=== PATIENT | male | born 1980 | race Caucasian/White ===

== ENCOUNTER 2023-06-30 05:58 | Emergency (ER) | payer MEDICAID, OTHER ==
[~2023-06-30] VITALS: Ht 175.3 cm; Wt 95.5 kg
[2023-06-30 06:51] VITALS: PULSE 76; RESP 15; O2SAT 99
[2023-06-30] MEDS: HYDROmorphone HCL 2 MG/ML VL/or syr IV ONE ×3 (07:08→12:11)
[2023-06-30] MEDS: ONDANSETRON HCL 4 MG/2 ML VIAL IV ONE ×2 (07:08→12:13)
[2023-06-30] MEDS: IOHEXOL 300 MG/ML 100ML BOTTLE IJ ONE (07:36)
[2023-06-30] MEDS: PROMETHAZINE HCL 25 MG/ML 1ML IV ONE (08:51)
[2023-06-30 09:47] VITALS: PULSE 68; RESP 20; O2SAT 96
[2023-06-30 12:08] VITALS: TEMP 98.1; O2SAT 99
[2023-06-30 12:13] VITALS: BP 107/56; PULSE 66; RESP 66
== END 2023-06-30 12:32 | disposition short-term general hospital (02) ==
LOC: ER 05:58 → EDBD 05:58 → ER 12:20
DX: S82.041A Displaced comminuted fracture of right patella, initial encounter for closed fracture (principal); R07.89 Other chest pain; R10.13 Epigastric pain; M25.571 Pain in right ankle and joints of right foot; V43.52XA Car driver injured in collision with other type car in traffic accident, initial encounter; Y93.89 Activity, other specified; Y92.410 Unspecified street and highway as the place of occurrence of the external cause; Y99.8 Other external cause status
CPT/HCPCS: 71260; 73562; 73610; 73630; 93005; 96374; 96375; 96376; 99285; J1170; J2405; J2550; Q9967